=== PATIENT | female | born 1990 | race Caucasian/White ===

== ENCOUNTER 2024-10-04 14:13 | Outpatient (CLI) | payer OTHER, SELFPAY ==
--- OUTSIDE RECORDS SUMMARY | 2024-10-04 14:19 | XMS_ITS | Clinical Summary ---
Author Organization [facility] Petty wong [address] Address [address] [place] [address] Care Team Providers Care Resource Development Manager Name Role Phone Unavailable Primary Care Provider Unavailabl e Allergies No known active allergies Medications ascorbic acid, vitamin C, (Vitamin C) 1,000 mg Tablet Take 1,000 mg by mouth daily. Active cyanocobalamin 1,000 mcg Tablet Take 1,000 mcg by mouth daily. Active CHOLECALCIFEROL, VITAMIN D3, ORAL Take by mouth. Active Encounters Date Type Department Care Team Description 10/04/2024 1:30 PM CDT Office Visit [facility] Oncology and Hematology - Jan [address] [facility] [address] [place] [address] Zac Busch MD Chronic anemia (Primary Dx) from Last 3 Months Family History Medical History Relation Name Comments No Known Problems Brother No Known Problems Father Skin Cancer Mother No Known Problems Sister Relation Name Status Comments Brother Alive Father Alive Mother Alive Sister Alive Social History Tobacco Use Types Packs/Day Years Used Date Smoking Tobacco: Never Smokeless Tobacco: Never Tobacco Cessation:Counseling Given: Not Answered Alcohol Use Standard Drinks/Week Comments Yes 0 (1 standard drink = 0.6 oz pur e alcohol) occasional Comments Unknown Sex and Gender Information Value Date Recorded Sex Assigned at Not on file Legal Sex Female 3:06 PM CDT Gender Identity Not on file Sexual Orientation Not on file Last Filed Vital Signs Vital Sign Reading Time Taken Comments Blood Pressure 137/79 10/04/2024 1:26 PM CDT Pulse 63 10/04/2024 1:26 PM CDT Temperature 36.1 C (96.9 F) 10/04/2024 1:26 PM CDT Respiratory Rate 16 10/04/2024 1:26 PM CDT Oxygen Saturation 98% 10/04/2024 1:26 PM CDT Inhaled Oxygen Concentration - - Weight 114.7 kg (252 lb 12.8 oz) 10/04/2024 1:26 PM CDT Height 182.9 cm (6') 10/04/2024 1:26 PM CDT Body Mass Index 34.29 10/04/2024 1:26 PM CDT Plan of Treatment Upcoming Encounters Date Type Department Care Team (Late st Contact Info) Description 10/13/2024 4:30 PM CDT Telephone Check Up [facility] Oncology and Hematology - Jan [address] [facility] [address] [place] [address] Zac Busch MD [address] [facility] [address] [place] [address] Health Maintenance Due Date Last Done Comments DTAP/TDAP/TD VACCINES (1 - Tdap) 2008 HEPATITIS B VACCINES (1 of 3 - 19+ 3-dose series) 2008 HPV/Cotest (21-29) 2010 CERVICAL CANCER SCREENING 11/21/2019 HPV/Cotest (30-65) 11/21/2019 PAP SMEAR 11/21/2019 INFLUENZA VACCINE (#1) 2023 Preventative Visit- Commercial 05/18/2024 HPV VACCINES Aged Out No longer eligi ble based on patient's age to complete this topic Insurance [facility]
--- OUTSIDE RECORDS SUMMARY | 2024-10-04 14:19 | XMS_ITS | Referral Summary ---
Author Organization [facility] [address] Address [address] [place] [address] Care Team Providers Care Product Safety Test Engineer Name Role Phone Darby Toth NP Primary Care Provider Allergies No known active allergies Medications predniSONE (DELTASONE) 10 mg tabletIndicatio ns:Poison clemencia dermatitis Take 4 tablets days 1-3, take 3 tablets days 4-6, take 2 tablets days 7-9, take 1 tablet days 10-14 32 tablet 03/30/2024 Active hydrOXYzine (ATARAX) 25 mg tabletIndicatio ns:Dermatitis Take 1 tablet (25 mg total) by mouth 2 (two) times a day as needed for itching for up to 5 days 10 tablet 04/09/2024 Active Active Problems No known active problems Social History Tobacco Use Types Packs/Day Years Used Date Smoking Tobacco: Never Assessed Comments Unknown Sex and Gender Information Value Date Recorded Sex Assigned at Not on file Legal Sex Female 7:37 AM SECONDS HANDLER Gender Identity Female 11/29/2021 10:32 AM CDT Sexual Orientation Not on file Last Filed Vital Signs Vital Sign Reading Time Taken Comments Blood Pressure 133/88 04/09/2024 4:01 PM SECONDS HANDLER Pulse 88 04/09/2024 4:01 PM SECONDS HANDLER Temperature 36.4 C (97.5 F) 04/09/2024 4:01 PM SECONDS HANDLER Respiratory Rate 18 04/09/2024 4:01 PM SECONDS HANDLER Oxygen Saturation 98% 04/09/2024 4:01 PM SECONDS HANDLER Inhaled Oxygen Concentration - - Weight 119.7 kg (263 lb 14.4 oz) 04/09/2024 4:01 PM SECONDS HANDLER Height 182.9 cm (6') 04/09/2024 4:01 PM SECONDS HANDLER Body Mass Index 35.79 04/09/2024 4:01 PM SECONDS HANDLER Plan of Treatment Not on file Insurance [facility] Care Teams Product Safety Test Engineer Relationship Specialty Start Date End Date Darby Ttoh NP [address] [facility] [address] [place] [address] [place] [address] PCP - General Cardiovascular Disease 09/20/24
--- OUTSIDE RECORDS SUMMARY | 2024-10-04 14:19 | XMS_ITS | Clinical Summary ---
Author Organization [facility] Address [address] [place] [address] Care Team Providers Care Hydraulic Corrugating Machine Operator Name Role Phone Unavailable Primary Care Provider Unavailabl e Source Comments [facility],non-owned Affiliates and Associated Physician Practices is amultiple site organization consisting of ambulatory clinics and hospital sitesin [place], [place], [place] and [place]. This disclosure is being madepursuant to the Care Everywhere program and may not contain all information available regarding this patient. Last updated 18.[facility] Allergies No known active allergies Medications * Be aware that medications may not be up to date on this document. Alwaysverify current medications with the patient. No known medications Active Problems No known active problems Encounters Date Type Department Care Team Description 10/03/2024 9:45 AM CDT Office Visit [facility] - Cosmetic Dermatology [facility] [place] [address] Tianna Small MD Rash (Primary Dx) 10/03/2024 Travel from Last 3 Months Social History Tobacco Use Types Packs/Day Years Used Date Smoking Tobacco: Never Smokeless Tobacco: Never Tobacco Cessation:Counseling Given: Not Answered Comments Unknown Sex and Gender Information Value Date Recorded Sex Assigned at Not on file Legal Sex 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 Gender Identity Not on file Sexual Orientation Not on file Plan of Treatment Upcoming Encounters Date Type Department Care Team (Late st Contact Info) Description 10/17/2024 10:30 AM CDT Office Visit [facility] - Cosmetic Dermatology [address], [address] [place] [address] Tianna Small MD [address] [place] [id number] Health Maintenance Due Date Last Done Comments PAP SMEAR 1989 HIV SCREENING 2004 HEPATITIS C SCREENING 11/16/2007 DTAP/TDAP/TD VACCINES (1 - Tdap) 2008 HEPATITIS B VACCINE (1 of 3 - 19+ 3-dose series) 2008 COVID-19 VACCINE (1 - 2023-2 5 season) 2024 DEPRESSION SCREENING 05/18/2024 INFLUENZA VACCINE (Season Ended) 2025 ZOSTER VACCINE (1 of 2) 11/21/2039 HIB VACCINE Aged Out No longer eligi ble based on patient's age to complete this topic HPV VACCINE Aged Out No longer eligi ble based on patient's age to complete this topic MENINGOCOCCAL (Group B) VACC INE SHARED DECISION-MAKING Aged Out No longer eligibl e based on patient's age to complete this topic MENINGOCOCCAL GROUPS A/C/Y/W VACCINE Aged Out No longer eligible b ased on patient's age to complete this topic PNEUMOCOCCAL VACCINE Aged Out No long er eligible based on patient's age to complete this topic Procedures Procedure Name Priority Date/Time Associated Diagnosis Comments AK PUNCH BX SKIN SINGLE LESION Routine 10/03/2024 12:04 PM CDT Rash from Last 3 Months Results * AK PUNCH BX SKIN SINGLE LESION (10/03/2024 12:04 PM CDT) Narrative Tianna Small MD - 10/03/2024 12:04 PM CDT Tianna Small MD 10/03/2024 12:04 PM Punch biopsy Risks, benefits and alternatives to punch biopsy were discussed with the patient. Pt understands the possibility for the following: Bleeding, infection, scar (100% chance), the possibility of non-diagnostic reading and the potential need for further testing or treatment, including surgical. Stated clearly the size of the specimen and the need to obtain adequate tissue for the most accurate path reading. Pt accepts all of above, verbal consent was obtained. Location: L thigh Punch biopsy: 4 mm Skin prep: Alcohol Anesthesia: 1% lidocaine with epinephrine Closure: 4-0 nylon suture Dressing and wound care discussed. Patient agrees to phone call for results and message if not available. us Tianna Small MD PROCEDURE/MINOR SURGICAL O RDERABLES Final Result from Last 3 Months Insurance [employer]
--- OUTSIDE RECORDS SUMMARY | 2024-10-04 14:19 | XMS_ITS | Clinical Summary ---
Author Organization [facility] [address] Address [address] [place] [address] Care Team Providers Care Keymodule Assembly Machine Tender Name Role Phone Darby Toth NP Primary [...] on file Legal Sex Female 7:37 AM MEDICAL PSYCHOTHERAPIST Gender Identity Female 11/29/2021 10:32 AM CDT Sexual Orientation Not on file Obstetrics History Last Filed Vital Signs Vital Sign Reading Time Taken Comments Blood Pressure 133/88 04/09/2024 4:01 PM MEDICAL PSYCHOTHERAPIST Pulse 88 04/09/2024 4:01 PM MEDICAL PSYCHOTHERAPIST Temperature 36.4 C (97.5 F) 04/09/2024 4:01 PM MEDICAL PSYCHOTHERAPIST Respiratory Rate 18 04/09/2024 4:01 PM MEDICAL PSYCHOTHERAPIST Oxygen Saturation 98% 04/09/2024 4:01 PM MEDICAL PSYCHOTHERAPIST Inhaled Oxygen Concentration - - Weight 119.7 kg (263 lb 14.4 oz) 04/09/2024 4:01 PM MEDICAL PSYCHOTHERAPIST Height 182.9 cm (6') 04/09/2024 4:01 PM MEDICAL PSYCHOTHERAPIST Body Mass Index 35.79 04/09/2024 4:01 PM MEDICAL PSYCHOTHERAPIST Plan of Treatment Health Maintenance Due Date Last Done Comments Cervical Cancer Screening 1989 Depression Screening 1989 Hepatitis C Screening 1989 DTaP/Tdap/Td Vaccine (1 - Tdap) 2000 Varicella Vaccines (1 of 2 - 13+ 2-dose series) 2002 Hepatitis B Screening 11/21/2007 Regular Well Visit/Exam 18-64 11/21/2007 Covid-19 Vaccine ( - 2023-2 5 season) 2024 02/26/2021, 08/10/2020, 07/21/2020 Influenza Vaccine (Season Ended) 2025 02/26/2021 HPV Vaccines Aged Out No longer eligi ble based on patient's age to complete this topic Pneumococcal vaccine <65 Aged Out No longer eligible based on patient's age to complete this topic Insurance [facility] [address] [place] [address] Care Teams Keymodule Assembly Machine Tender Relationship Specialty Start Date End Date Darby Toth TREASURY SPECIALIST [address] [place] [address] [address] PCP - General Cardiovascular Disease 09/20/24
--- OUTSIDE RECORDS SUMMARY | 2024-10-04 14:20 | XMS_ITS | Encounter Summary ---
Author Organization [facility] Address [address] [place] [address] Care Team Providers Care Patient Care Manager Name Role Phone Unavailable Primary Care Provider Unavailabl e Encounter Details Date Type Department Care Team (Late st Contact Info) Description 10/04/2024 1:30 PM CDT Office Visit [facility] Oncology and Hematology - Jan [address] [facility] [address] [address] [place] [address] Zac Busch MD [address] [facility] [address] [place] [address] Chronic anemia (Primary Dx) Social History Tobacco Use Types Packs/Day Years [...] on file Sexual Orientation Not on file documented as of this encounter Last Filed Vital Signs Vital Sign Reading [...] Mass Index 34.29 10/04/2024 1:26 PM CDT documented in this encounter Plan of Treatment Upcoming Encounters Date Type Department Care Team (Late st Contact Info) Description 10/13/2024 4:30 PM CDT Telephone Check Up [facility] Oncology and Hematology - Jan [address] [facility] [address] [place] [address] Zac Busch MD [address] [facility] [address] [place] [address] Scheduled Orders Name Type Priority Associated Diagnoses Orde r Schedule CBC WITH DIFFERENTIAL Lab Stat Chronic anemia Expected: 10/04/2024, Expires: 10/04/2025 COMPREHENSIVE METABOLIC PANEL Lab Stat Chronic anemia Expected: 10/04/2024, Expires: 10/04/2025 FERRITIN Lab Routine Chronic anemia Expected: 10/04/2024, Expires: 10/04/2025 IRON, TIBC, AND PERCENT SATURATION Lab Routine Chronic anemia Expected: 10/04/2024, Expires: 10/04/2025 TRANSFERRIN RECEPTOR TFR SOLUBLE Lab Routine Chronic anemia Expected: 10/04/2024, Expires: 10/04/2025 VITAMIN B12 AND FOLATE Lab Routine Chronic anemia Expected: 10/04/2024, Expires: 10/04/2025 documented as of this encounter Visit Diagnoses Diagnosis Chronic anemia- Primary Anemia, unspecified documented in this encounter
--- OUTSIDE RECORDS SUMMARY | 2024-10-04 14:20 | XMS_ITS | Encounter Summary ---
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
--- OUTSIDE RECORDS SUMMARY | 2024-10-04 14:20 | XMS_ITS | Encounter Summary ---
Author Organization [facility] Address [address] [place] [address] Care Team Providers Care Commercial Plumber Name Role Phone Unavailable Primary Care Provider Unavailabl e Reason for Visit * Reason Comments Rash Upper thighs and low er abdomen, has been going on since february * Consult, Test & Treat (Routine) - Open Specialty Diagnoses / Procedures Referred By Jaya lock Referred To Contact Dermatology Diagnoses Rash and other nonspecific skin eruption Darby [facility] [address] [place] [address] Phone: tel: fax: Referral ID Status Reason Start Date Expiration Date Visits Re quested Visits Authorized [id number] Open 09/16/2024 09/16/2025 1 1 Encounter Details Date Type Department Care Team (Late st Contact Info) Description 10/03/2024 9:45 AM CDT Office Visit [facility] - Cosmetic Dermatology [address], [address] [address] Tianna Small MD [address] [email or web address] [address] [place] [address] Rash (Primary Dx) Social History Tobacco Use Types Packs/Day Years Used Date Smoking Tobacco: Never Smokeless Tobacco: Never Tobacco Cessation:Counseling Given: Not Answered Comments Unknown Sex and Gender Information Value Date Recorded Sex Assigned at Not on file Legal Sex Female 5:37 AM EQUINE INTERNSHIP Gender Identity Not on file Sexual Orientation Not on file documented as of this encounter Patient Instructions * Patient Instructions* Tianna Small MD - 10/03/2024 9:53 AM CDT WOUND CARE INSTRUCTIONS: If you have a bandage, please leave your bandage on overnight. Starting the next day, cleanse your wound twice daily with mild soap and water and gently pat dry. Avoid soaking in bath or dishwater. Apply plain Vaseline or Aquaphor ointment twice daily to the wound after cleaning the wound. Cover the wound with a Band-Aid or appropriate dressing. Continue this process for 10-14 days until new skin has formed over the wound For pain, you may take acetaminophen (extra or regular strength), 2 tablets every 6 hours as neededfor pain. Do not exceed the recommended limit on the directions. Avoid ibuprofen containing products or related products(Motrin, Advil, Aleve, aspirin, etc) unless prescribed by your physician as these meds can thin the blood and increase risk of post-procedure bleeding and bruising. Avoid any trauma or activity that may open your surgical wound. If you note bleeding of your surgical site at home after the procedure, apply firm constant pressure for 20 min (set a timer) with NO PEEKING during this time. Suture removal for punch biopsies and excisions: Stitches that don't dissolve will need to be removed. Please schedule an appointment for a nursing visit 7 days after your procedure for sutures on the face, or 14 days for anywhere else on the body. If you have not received your biopsy results in two weeks, please contact your physician. Notify your physician if you have: Bleeding that does not stop after 20 minutes of continuous pressure. Yellowish/greenish discharge from the treated area Increasing tenderness or pain Warmth of the area and/or fever over 101 F Red streaks up the arm or leg close to the treated area Contact the clinic at . If you need to speak to someone after 4:30 pm or before 8:00 am call and ask to speak with the Pole Classifier sound installation worker. documented in this encounter Progress Notes * Tianna Small MD - 10/03/2024 11:31 AM CDT Images from the original note were not included. Subjective: Chief Complaint: Rash (Upper thighs and lower abdomen, has been going on since february) History of Present Illness The patient is a 33-year-old female presenting with a recurrent rash on her thighs. The rash first appeared in 02/2024 after exposure to poison clemencia. Prednisone was prescribed but ineffective, leading to a product tester referral and biopsy. The rash resolved but recurred 3 to 4 weeks ago, spreading to her panty line and stomach, with severe itching. Doxycycline was prescribed and also received a kenalog injection. Notes rash improved slightly but still red and itchy. No correlation with sun exposure or use of equipment rubbing area causing the rash. 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 Per PCP note from 09/14/24, pt had biopsy on back that showed lymphocytic infiltrate (read by outside path), suggestive of autoimmune/CTD, had negative ELIZABETH, ESR, but low Hg, vit D. Pt has been supplementing with iron and vit D and recent recheck of labs shows improvement per pt. FAMILY HISTORY No family history of autoimmune diseases such as lupus, rheumatoid arthritis, or Sjogren's disease. Historian other than pt: no [place] Skin type: II /: no Review of Systems: As per HPI above. RECORDS REVIEWED: Allergies[1] Medications[2] Past Medical History[3] Objective: Physical Exam: No acute distress. Mood clear/affect appropriate. Alert and oriented. Mucous membranes moist. Sclera anicteric. A skin exam was conducted to include the face, ears, neck, right and left hands and forearms, rightand left leg and feet and was normal with the following exceptions: Physical Exam Skin: Erythematous papules with surrounding faint erythematous plaques on bilateral anterior and medial thighs. Scattered erythematous papules on lower abdomen. Assessment and Plan: 1. Rash: thighs, abdomen Ddx includes eczematous/ACD, possible autoimmune/CTD, urticarial vasculitis Reviewed outside note from PCP Punch biopsy today Wound care reviewed S/r in 2 weeks - PROC BIOPSY OF SKIN LESION - DERMATOPATHOLOGY Asked pt to email her outside path from prior biopsy Patient was instructed to return sooner should they develop any new, changing and/or worsening lesions, side effects of any recommended treatments, or as needed. Tianna Small MD Dermatology [1] No Known Allergies [2] [3] No past medical history on file. documented in this encounter Procedure Notes * Tianna Small MD - 10/03/2024 12:04 PM CDTAssociated Order(s): PROC BIOPSY OF SKIN LESION Procedure(s): WI PUNCH BX SKIN SINGLE LESION Pre-Procedure Diagnose(s): Rash Punch biopsy Risks, benefits and alternatives to punch biopsy were discussed with the patient. Pt understands the possibility for the following: Bleeding, infection, scar (100% chance), the possibility of non-diagnostic reading and the potential need for further testing or treatment, includingsurgical. Stated clearly the size of the specimen [...] for results and message if not available. documented in this encounter Plan of Treatment Upcoming Encounters Date Type Department Care Team (Late st Contact Info) Description 10/17/2024 10:30 AM CDT Office Visit [facility] - Cosmetic Dermatology [address], [facility] [address] [place] [address] Tianna Small MD [address] [facility] [[email or web address]] [address] [place] [address] Pending Results Name Type Priority Associated Diagnoses Date /Time DERMATOPATHOLOGY Pathology Cytology Routine Rash 10/03/2024 10:04 AM CDT documented as of this encounter Procedures Procedure Name Priority Date/Time Associated Diagnosis Comments WI PUNCH BX SKIN SINGLE LESION Routine 10/03/2024 12:04 PM CDT Rash documented in this encounter Results * WI PUNCH BX SKIN SINGLE LESION (10/03/2024 12:04 [...] MD PROCEDURE/MINOR SURGICAL O RDERABLES Final Result documented in this encounter Visit Diagnoses Diagnosis Rash- Primary Rash and other nonspecific skin eruption documented in this encounter
[2024-10-04 14:39] LABS: Basophils Absolute Auto 0.1 K/mm3 (0.0-0.1); Basophils Percent Auto 0.8 % (0.2-1.2); Eosinophils Absolute Auto 0.1 K/mm3 (0-0.3); Eosinophils Percent Auto 1.6 % (0-4.4); Hematocrit 38.5 % (37.0-47.0); Hemoglobin 12.4 g/dL (12.0-15.0); Immature Granulocyte Absolute 0.01 K/mm3 (0.00-0.031); Immature Granulocyte Percent A 0.2 % (0-0.5); Lymphocytes Absolute Auto 1.43 K/mm3 (0.9-3.2); Lymphocytes Percent Auto 22.5 % (18.3-44.2); Mean Corpuscular HGB Conc 32.2 g/dl (32-36); Mean Corpuscular Hemoglobin 26.9 pg (26-34); Mean Corpuscular Volume 83.5 fl (80-100); Mean Platelet Volume 9.9 fl (7.4-10.4); Monocytes Absolute Auto 0.5 K/mm3 (0.1-0.6); Monocytes Percent Auto 7.2 % (2.6-8.5); Neutrophils Absolute Auto 4.3 K/mm3 (1.3-6.7); Neutrophils Percent Auto 67.7 % (45.5-73.1); Platelet Count Result 199 k/mm3 (150-375); Red Blood Count 4.61 M/mm3 (4.2-5.4); Red Cell Distribution Width 18.4 % (11.5-14.5); White Blood Count 6.4 K/mm3 (4.5-10.0)
[2024-10-04 16:32] LABS: Iron 117 ug/dL (37-170)
[2024-10-04 16:37] LABS: Alanine Aminotransferase 27 U/L (6-35); Albumin Level 4.1 g/dL (3.5-5.1); Alkaline Phosphatase 43 U/L (38-126); Anion Gap 9 mmol/L (4-12); Aspartate Amino Transferase 47 U/L (14-36); Bilirubin,Total 0.5 mg/dL (0.2-1.3); Blood Urea Nitrogen 11 mg/dL (7-17); Calcium 8.6 mg/dL (8.4-10.2); Carbon Dioxide 22 mmol/L (22-30); Chloride 109 mmol/L (98-107); Estimated Glomerular Filt Rate > 60; Glucose 98 mg/dL (65-110); Potassium 4.1 mmol/L (3.4-5.0); Sodium 140 mmol/L (137-145)
[2024-10-04 16:38] LABS: Percent Iron Saturation 29 % (20-50)
[2024-10-04 17:43] LABS: Folic Acid 7.9 ng/mL (2.76->20)
[2024-10-07 14:04] LABS: Soluble Transferrin Receptor 1.42 mg/L (0.76-1.76)
== END 2024-10-04 14:14 | disposition home or self-care (01) ==
LOC: ANHLAB 14:15
PROVIDERS: PCP Internal Medicine; Visit Provider Internal Medicine Hematology & Oncology
DX: D64.9 Anemia, unspecified (principal)
CPT/HCPCS: 36415; 80053; 82607; 82728; 82746; 83540; 83550; 84238; 85025